=== PATIENT | female | born 1995 | race Asian ===

== ENCOUNTER → 2020-04-05 | Outpatient (CLI) | payer OTHER ==
[2020-04-05 11:34] LABS: BASOPHILS % (AUTO) 0.2 % (0.0-2.0); EOSINOPHILS % (AUTO) 0.6 % (1.0-6.0); HEMATOCRIT 42.3 % (36-46); HEMOGLOBIN 13.1 g/dL (12.0-16.0); LYMPHOCYTES # (AUTO) 0.7 K/uL (1.0-4.8); LYMPHOCYTES % (AUTO) 14.6 % (22.0-44.0); MEAN CORPUSCULAR VOLUME 65 fL (80-100); MONOCYTES # (AUTO) 0.7 K/uL (0.1-1.0); MONOCYTES % (AUTO) 13.3 % (2.0-9.0); NEUTROPHILS # (AUTO) 3.6 K/uL (1.8-7.7); NEUTROPHILS % (AUTO) 71.3 % (40.0-70.0); PLATELET COUNT (AUTO) 245 K/uL (150-450); RED BLOOD CELL COUNT(AUTO) 6.53 MIL/uL (4.00-5.20); RED CELL DISTRIBUTION WIDTH 13.5 % (11.5-14.5)
[2020-04-05 11:55] LABS: FOLATE SERUM 19.4 ng/mL (5.4-); IRON, SERUM 45 mcg/dL (50-175)
[2020-04-05 12:11] LABS: FERRITIN 140 ng/mL (8-252); FREE THYROXINE INDEX 9.6 (1.4-4.5); T3 UPTAKE 51 % (31-39); THYROID STIMULATING HORMONE < 0.01 uIU/mL (0.36-3.74)
[2020-04-05 12:37] LABS: TOTAL IRON BINDING CAPACITY 250 mcg/dL (250-450)
== END | disposition home or self-care (01) ==
LOC: LABPV 10:38
PROVIDERS: ATTEND Internal Medicine
DX: Z00.00 Encounter for general adult medical examination without abnormal findings (principal); R53.83 Other fatigue; E05.90 Thyrotoxicosis, unspecified without thyrotoxic crisis or storm
CPT/HCPCS: 82306; 82607; 82728; 82746; 83021; 83540; 83550; 84436; 84443; 84479

== ENCOUNTER → 2020-07-22 | Outpatient (CLI) | payer OTHER ==
[2020-07-22 11:13] LABS: % IRON SATURATION 22.8 % (22-44); IRON, SERUM 67 mcg/dL (50-175); TOTAL IRON BINDING CAPACITY 293 mcg/dL (250-450)
[2020-07-22 11:27] LABS: BASOPHILS % (AUTO) 0.8 % (0.0-2.0); EOSINOPHILS % (AUTO) 8.1 % (1.0-6.0); HEMATOCRIT 44.1 % (36-46); HEMOGLOBIN 13.9 g/dL (12.0-16.0); LYMPHOCYTES # (AUTO) 2.4 K/uL (1.0-4.8); LYMPHOCYTES % (AUTO) 28.8 % (22.0-44.0); MEAN CORPUSCULAR HEMOGLOBIN 20.5 pg (26.0-34.0); MEAN CORPUSCULAR HGB CONC 31.5 G/dL (31.0-37.0); MEAN CORPUSCULAR VOLUME 65 fL (80-100); MONOCYTES # (AUTO) 0.5 K/uL (0.1-1.0); MONOCYTES % (AUTO) 6.7 % (2.0-9.0); NEUTROPHILS # (AUTO) 4.5 K/uL (1.8-7.7); NEUTROPHILS % (AUTO) 55.6 % (40.0-70.0); PLATELET COUNT (AUTO) 290 K/uL (150-450); RED BLOOD CELL COUNT(AUTO) 6.75 MIL/uL (4.00-5.20); RED CELL DISTRIBUTION WIDTH 14.9 % (11.5-14.5)
[2020-07-22 11:28] LABS: FERRITIN 42 ng/mL (8-252); FREE THYROXINE INDEX 4.3 (1.4-4.5); T3 UPTAKE 40 % (31-39)
[2020-07-22 12:17] LABS: THYROID STIMULATING HORMONE < 0.01 uIU/mL (0.36-3.74)
[2020-07-23 11:01] LABS: FOLATE SERUM 14.7 ng/mL (5.4-)
== END | disposition home or self-care (01) ==
LOC: LABPV 07:07
PROVIDERS: ATTEND Internal Medicine
DX: Z00.00 Encounter for general adult medical examination without abnormal findings (principal); E05.90 Thyrotoxicosis, unspecified without thyrotoxic crisis or storm; R53.83 Other fatigue
CPT/HCPCS: 82306; 82607; 82728; 82746; 83021; 83540; 83550; 84436; 84443; 84479